=== PATIENT | female | born 1975 | race Caucasian/White ===

== ENCOUNTER 2017-12-18 10:07 | Observation (INO) ==
--- NOTE | 2017-12-18 10:19 | Emergency Department Note ---
Disposition Clinical Impression: Suicidal ideation, Attempted suicide Disposition: Admitted As Inpatient Condition: Fair General Adult HPI - General Stated complaint: SI, OD Time Seen by Provider: 12/18/17 10:13 - Related Data Previous Rx's Medication Instructions Recorded Doxycycline Hyclate 100 mg PO BID #20 tablet. 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 - Social History Smoking Status: Current every day smoker Smokeless Tobacco Status: No Alcohol use: Reports: none Drug use: Reports: none Course Vital Signs Temperature 98.1 F 12/18/17 10:11 Pulse Rate 112 12/18/17 10:11 Respiratory Rate 18 12/18/17 10:11 Blood Pressure 166/105 12/18/17 10:11 O2 Sat by Pulse Oximetry 98 12/18/17 10:11 Temperature 98.1 F 12/18/17 10:11 Pulse Rate 112 12/18/17 10:11 Respiratory Rate 18 12/18/17 10:11 Blood Pressure 166/105 12/18/17 10:11 O2 Sat by Pulse Oximetry 98 12/18/17 10:11 Oxygen Delivery Oxygen Delivery Room Air Medical Decision Making - Lab Data Result diagrams: 12/18/17 10:33 12/18/17 10:33 Lab Results 12/18/17 12/18/17 12/18/17 Range/Units 10:26 10:33 10:33 WBC 10.6 (4.3-11.1) K/mcL RBC 5.21 H (3.82-4.97) M/mcL Hgb 15.3 (11.5-15.4) g/dL Hct 44.7 (35.3-44.9) % MCV 85.8 (83.0-100.0) fL MCH 29.4 (28.0-33.3) pg MCHC 34.2 (31.6-35.5) g/dL RDW 13.1 (11.5-14.5) % Plt Count 301 (140-400) K/mcL MPV 8.7 L (9.4-12.4) fL Immature Gran % 0.2 (0-4) % Seg Neutrophils % 57.0 % Lymphocytes % 28.8 % Monocytes % 11.7 % Eosinophils % 1.7 % Basophils % 0.6 % Neutrophils # 6.0 (1.6-8.9) K/mcL Lymphocytes # 3.1 (0.6-4.6) K/mcL Monocytes # 1.2 (0.0-1.3) K/mcL Eosinophils # 0.2 (0.0-0.6) K/mcL Basophils # 0.1 (0.0-0.2) K/mcL Sodium 137 (136-145) mEq/L Potassium 3.9 (3.5-5.1) mEq/L Chloride 106 (98-107) mEq/L Carbon Dioxide 22 L (23-29) mEq/L BUN 11 (6-20) mg/dL Creatinine 0.65 (0.60-1.20) mg/dL Est GFR ( Amer) > 60 (> 60) Est GFR (Non-Af Amer) > 60 (> 60) BUN/Creatinine Ratio 17 (6-26) Glucose 105 (70-105) mg/dL Calculated Osmolality 284 (280-300) Calcium 9.0 (8.6-10.3) mg/dL Phosphorus 2.1 L (2.7-4.5) mg/dL Magnesium 2.0 (1.6-2.6) mg/dL Urine Color (Yellow) Urine Clarity (Clear) Urine pH (5.0-8.0) pH Units Ur Specific [place] (1.010-1.025) Urine Protein (Neg-Trace) mg/dL Urine Glucose (UA) (Normal) mg/dL Urine Ketones (Negative) mg/dL Urine Blood (Negative) Urine Nitrite (Negative) Urine Bilirubin (Negative) Urine Urobilinogen (Normal) mg/dL Ur Leukocyte Esterase (Negative) Salicylates < 2.5 L (15.0-30.0) mg/dL Urine Opiates Screen Negative (Dyhuhm=018) ng/mL Acetaminophen < 10 L (10-20) mcg/mL Ur Barbiturates Screen Negative (Hcxnhk=981) ng/mL Ur Phencyclidine Scrn Negative (Cutoff=25) ng/mL Ur Amphetamines Screen Negative (Vnbpkj=1715) ng/mL U Benzodiazepines Scrn Negative (Lwiqnb=565) ng/mL Urine Cocaine Screen Negative (Cutoff= 300) ng/mL U Marijuana (THC) Screen Negative (Cutoff = 50) ng/mL Ur Drug Screen Interp See Below Ethyl Alcohol < 10 (Less than 10) mg/dL 12/18/17 Range/Units 10:34 WBC (4.3-11.1) K/mcL RBC (3.82-4.97) M/mcL Hgb (11.5-15.4) g/dL Hct (35.3-44.9) % MCV (83.0-100.0) fL MCH (28.0-33.3) pg MCHC (31.6-35.5) g/dL RDW (11.5-14.5) % Plt Count (140-400) K/mcL MPV (9.4-12.4) fL Immature Gran % (0-4) % Seg Neutrophils % % Lymphocytes % % Monocytes % % Eosinophils % % Basophils % % Neutrophils # (1.6-8.9) K/mcL Lymphocytes # (0.6-4.6) K/mcL Monocytes # (0.0-1.3) K/mcL Eosinophils # (0.0-0.6) K/mcL Basophils # (0.0-0.2) K/mcL Sodium (136-145) mEq/L Potassium (3.5-5.1) mEq/L Chloride (98-107) mEq/L Carbon Dioxide (23-29) mEq/L BUN (6-20) mg/dL Creatinine (0.60-1.20) mg/dL Est GFR ( Amer) (> 60) Est GFR (Non-Af Amer) (> 60) BUN/Creatinine Ratio (6-26) Glucose (70-105) mg/dL Calculated Osmolality (280-300) Calcium (8.6-10.3) mg/dL Phosphorus (2.7-4.5) mg/dL Magnesium (1.6-2.6) mg/dL Urine Color Yellow (Yellow) Urine Clarity Clear (Clear) Urine pH 6.0 (5.0-8.0) pH Units Ur Specific [place] 1.009 L (1.010-1.025) Urine Protein Negative (Neg-Trace) mg/dL Urine Glucose (UA) Normal (Normal) mg/dL Urine Ketones Negative (Negative) mg/dL Urine Blood Negative (Negative) Urine Nitrite Negative (Negative) Urine Bilirubin Negative (Negative) Urine Urobilinogen Normal (Normal) mg/dL Ur Leukocyte Esterase Negative (Negative) Salicylates (15.0-30.0) mg/dL Urine Opiates Screen (Lavjvk=619) ng/mL Acetaminophen (10-20) mcg/mL Ur Barbiturates Screen (Dhamjl=288) ng/mL Ur Phencyclidine Scrn (Cutoff=25) ng/mL Ur Amphetamines Screen (Oihmfq=2808) ng/mL U Benzodiazepines Scrn (Vfxxeg=742) ng/mL Urine Cocaine Screen (Cutoff= 300) ng/mL U Marijuana (THC) Screen (Cutoff = 50) ng/mL Ur Drug Screen Interp Ethyl Alcohol (Less than 10) mg/dL Attestation Statement - Attestation Attestation: I examined this patient and my medical decision-making was reviewed with the Resident Physician. I agree with the documented findings, disposition and treatment plan as described except to the extent set forth below. Patient to ED with intentional overdose on Wellbutrin. Wanted to kill herself. Took 15 pills 20 minutes ago. On exam she is awake alert and appropriate tearful but in no distress. Plan. Discussed with poison control who does not want charcoal. Medical clearance and evaluation by 1A. Patient is medically cleared. 1A evaluation pending. 1A feels patient appropriate for admission. Physical now states they were mistaken and the patient is admitted for a 12 hour observation period. We will admit to medicine.
--- NOTE | 2017-12-18 10:19 | Emergency Department Note ---
Addendum entered and electronically signed by Liz Schilling DO 12/18/17 15 :32: After patient was accepted by psychiatric services poison control called us back and stated that the patient would actually need to be monitored for 12-24 hours. Due to this change the admitted to the hospitalist team for further medical clearance until patient can be transferred to psychiatric services. I spoke with the hospitalist workers' compensation claims supervisor Dr. Leos who agrees to accept the patient at this time. Original Note: Disposition Clinical Impression: Suicidal ideation, Attempted suicide Disposition: Admitted As Inpatient Condition: Fair Referrals: NONE,PCP [Primary Care Provider] - General Adult HPI - General Stated complaint: SI, OD Time Seen by Provider: 12/18/17 10:13 Source: patient, EMS Mode of arrival: EMS Nursing Notes Reviewed: Yes Vital Signs Reviewed: Yes - History of Present Illness HPI Narrative: 42-year-old female presenting for intentional overdose. According to EMS patient took 15 75 mg Wellbutrin approximately 20 minutes prior to arrival. Patient told her boyfriend who then called EMS. At this time patient complains of dizziness but denies any other symptoms including chest pain, shortness of breath or abdominal pain. No active vomiting in the room. Patient denies any other intentional ingestion prior to arrival. Denies any drug or alcohol use. Patient has history of depression but has never had any suicide attempts previously. - Related Data Previous Rx's Medication Instructions Recorded Doxycycline Hyclate 100 mg PO BID #20 tablet. 11/10/17 Allergies Allergy/AdvReac Type Severity Reaction Status Date / Time No Known Allergies Allergy Verified 11/10/17 16:00 All systems ED: reviewed and negative except as stated. Constitutional: Denies: fever, chills, weakness Eyes: Reports: as per HPI ENT ED: Reports: as per HPI Cardiovascular: Denies: chest pain, palpitations, dyspnea on exertion Respiratory: Denies: cough, dyspnea, wheezes Gastrointestinal: Denies: abdominal pain, nausea, vomiting Genitourinary: Reports: as per HPI Musculoskeletal: Reports: as per HPI Integumentary: Reports: as per HPI Neurological: Reports: other Psychiatric: Reports: depression, suicidal thoughts Endocrine: Reports: as per HPI Hematological/Lymphatic: Reports: as per HPI Allergic/Immunologic: Reports: as per HPI Past Medical History - Past Medical History Attestation: Yes The following information was validated with the patient. 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 Absent: scleral icterus, conjunctival injection - ENT ENT exam: normal exam, mucous membranes moist - Neck Neck exam: Present: normal inspection, full ROM. Absent: tenderness, meningismus - Chest Chest inspection: Present: normal inspection, symmetric chest wall rise. Absent : tenderness, rash - Respiratory Respiratory exam: Present: normal lung sounds bilaterally. Absent: respiratory distress, wheezes - Cardiovascular Cardiovascular exam: Present: normal rhythm, tachycardia, normal heart sounds - Abdominal Exam Abdominal exam: Present: soft, Non-Tender. Absent: distention, guarding, rebound - Extremities Exam Extremities exam: Present: normal inspection, full ROM - Neurological Exam Neurological exam: Present: alert - Psychiatric Psychiatric exam: Present: flat affect, suicidal ideation - Skin Skin exam: Present: warm, intact Course Course Narrative: 42-year-old female presenting for an intentional overdose. Patient took 15 75 mg Wellbutrin 20 minutes prior to arrival. I spoke with poison control who stated we should get an EKG now and repeat EKG in 2 hours to observe QTC prolongation. Also suggested adding a magnesium and phosphorus level to our medical clearance workup. Patient's only complaint at this time is dizziness. She is tachycardic but otherwise vital signs stable. Disposition most likely admission but pending medical clearance and one a evaluation. She will be pink slipped at this time. - Reevaluation(s) Reevaluation #1: Patient's repeat EKG shows no QTC prolongation. At this time medically clear. We have consult one a to evaluate the patient. They feel she needs to be admitted for inpatient psychiatric services. At this time will admit the patient to one a. Patient is alert and medically stable the room. Stable vital signs. Vital Signs Temperature 98.1 F 12/18/17 10:11 Pulse Rate 112 12/18/17 10:11 Respiratory Rate 18 12/18/17 10:11 Blood Pressure 166/105 12/18/17 10:11 O2 Sat by Pulse Oximetry 98 12/18/17 10:11 Temperature 98.1 F 12/18/17 10:11 Pulse Rate 112 12/18/17 10:11 Respiratory Rate 18 12/18/17 10:11 Blood Pressure 166/105 12/18/17 10:11 O2 Sat by Pulse Oximetry 98 12/18/17 10:11 Oxygen Delivery Oxygen Delivery Room Air Medical Decision Making - Lab Data Result diagrams: 12/18/17 10:33 12/18/17 10:33 Lab Results 12/18/17 12/18/17 12/18/17 Range/Units 10:26 10:33 10:33 WBC 10.6 (4.3-11.1) K/mcL RBC 5.21 H (3.82-4.97) M/mcL Hgb 15.3 (11.5-15.4) g/dL Hct 44.7 (35.3-44.9) % MCV 85.8 (83.0-100.0) fL MCH 29.4 (28.0-33.3) pg MCHC 34.2 (31.6-35.5) g/dL RDW 13.1 (11.5-14.5) % Plt Count 301 (140-400) K/mcL MPV 8.7 L (9.4-12.4) fL Immature Gran % 0.2 (0-4) % Seg Neutrophils % 57.0 % Lymphocytes % 28.8 % Monocytes % 11.7 % Eosinophils % 1.7 % Basophils % 0.6 % Neutrophils # 6.0 (1.6-8.9) K/mcL Lymphocytes # 3.1 (0.6-4.6) K/mcL Monocytes # 1.2 (0.0-1.3) K/mcL Eosinophils # 0.2 (0.0-0.6) K/mcL Basophils # 0.1 (0.0-0.2) K/mcL Sodium 137 (136-145) mEq/L Potassium 3.9 (3.5-5.1) mEq/L Chloride 106 (98-107) mEq/L Carbon Dioxide 22 L (23-29) mEq/L BUN 11 (6-20) mg/dL Creatinine 0.65 (0.60-1.20) mg/dL Est GFR ( Amer) > 60 (> 60) Est GFR (Non-Af Amer) > 60 (> 60) BUN/Creatinine Ratio 17 (6-26) Glucose 105 (70-105) mg/dL Calculated Osmolality 284 (280-300) Calcium 9.0 (8.6-10.3) mg/dL Phosphorus 2.1 L (2.7-4.5) mg/dL Magnesium 2.0 (1.6-2.6) mg/dL Urine Color (Yellow) Urine Clarity (Clear) Urine pH (5.0-8.0) pH Units Ur Specific [place] (1.010-1.025) Urine Protein (Neg-Trace) mg/dL Urine Glucose (UA) (Normal) mg/dL Urine Ketones (Negative) mg/dL Urine Blood (Negative) Urine Nitrite (Negative) Urine Bilirubin (Negative) Urine Urobilinogen (Normal) mg/dL Ur Leukocyte Esterase (Negative) Salicylates < 2.5 L (15.0-30.0) mg/dL Urine Opiates Screen Negative (Xbqgsr=813) ng/mL Acetaminophen < 10 L (10-20) mcg/mL Ur Barbiturates Screen Negative (Uuiqaw=714) ng/mL Ur Phencyclidine Scrn Negative (Cutoff=25) ng/mL Ur Amphetamines Screen Negative (Yayhnh=2573) ng/mL U Benzodiazepines Scrn Negative (Ewkyhy=940) ng/mL Urine Cocaine Screen Negative (Cutoff= 300) ng/mL U Marijuana (THC) Screen Negative (Cutoff = 50) ng/mL Ur Drug Screen Interp See Below Ethyl Alcohol < 10 (Less than 10) mg/dL 12/18/17 Range/Units 10:34 WBC (4.3-11.1) K/mcL RBC (3.82-4.97) M/mcL Hgb (11.5-15.4) g/dL Hct (35.3-44.9) % MCV (83.0-100.0) fL MCH (28.0-33.3) pg MCHC (31.6-35.5) g/dL RDW (11.5-14.5) % Plt Count (140-400) K/mcL MPV (9.4-12.4) fL Immature Gran % (0-4) % Seg Neutrophils % % Lymphocytes % % Monocytes % % Eosinophils % % Basophils % % Neutrophils # (1.6-8.9) K/mcL Lymphocytes # (0.6-4.6) K/mcL Monocytes # (0.0-1.3) K/mcL Eosinophils # (0.0-0.6) K/mcL Basophils # (0.0-0.2) K/mcL Sodium (136-145) mEq/L Potassium (3.5-5.1) mEq/L Chloride (98-107) mEq/L Carbon Dioxide (23-29) mEq/L BUN (6-20) mg/dL Creatinine (0.60-1.20) mg/dL Est GFR ( Amer) (> 60) Est GFR (Non-Af Amer) (> 60) BUN/Creatinine Ratio (6-26) Glucose (70-105) mg/dL Calculated Osmolality (280-300) Calcium (8.6-10.3) mg/dL Phosphorus (2.7-4.5) mg/dL Magnesium (1.6-2.6) mg/dL Urine Color Yellow (Yellow) Urine Clarity Clear (Clear) Urine pH 6.0 (5.0-8.0) pH Units Ur Specific [place] 1.009 L (1.010-1.025) Urine Protein Negative (Neg-Trace) mg/dL Urine Glucose (UA) Normal (Normal) mg/dL Urine Ketones Negative (Negative) mg/dL Urine Blood Negative (Negative) Urine Nitrite Negative (Negative) Urine Bilirubin Negative (Negative) Urine Urobilinogen Normal (Normal) mg/dL Ur Leukocyte Esterase Negative (Negative) Salicylates (15.0-30.0) mg/dL Urine Opiates Screen (Eftfzu=435) ng/mL Acetaminophen (10-20) mcg/mL Ur Barbiturates Screen (Awfmiy=783) ng/mL Ur Phencyclidine Scrn (Cutoff=25) ng/mL Ur Amphetamines Screen (Vtwcjy=2537) ng/mL U Benzodiazepines Scrn (Aaufai=488) ng/mL Urine Cocaine Screen (Cutoff= 300) ng/mL U Marijuana (THC) Screen (Cutoff = 50) ng/mL Ur Drug Screen Interp Ethyl Alcohol (Less than 10) mg/dL - EKG Data EKG #1 EKG attestation: Yes I reviewed and interpreted this EKG. EKG results narrative: Sinus tachycardia. 114 bpm. MT interval 153, QRS 97, QTC 460. No sign of acute ST segment elevation or ischemia. Compared to previous EKG completed on 09/21/2017 no significant changes noted EKG #2 EKG attestation: Yes I reviewed and interpreted this EKG. EKG results narrative: Sinus rhythm. 80 beats for minute. MT interval 165, QRS 94, QTC 426. No sign of acute ST segment elevation or ischemia.
[2017-12-18 10:38] LABS: Bilirubin,Urine Negative (Negative); Blood,Urine Negative (Negative); Clarity,Urine Clear (Clear); Color,Urine Yellow (Yellow); Glucose,Urine (UA) Normal (Normal); Ketones,Urine Negative (Negative); Leukocyte Esterase,Urine Negative (Negative); Nitrite,Urine Negative (Negative); Protein,Urine Negative (Neg-Trace); Specific Gravity,Urine 1.009 (1.010-1.025); Urobilinogen,Urine Normal (Normal)
[2017-12-18 10:47] LABS: Amphetamine Screen,Urine Negative ng/mL (Cutoff=1000); Barbiturate Screen,Urine Negative ng/mL (Cutoff=200); Benzodiazepines Screen,Urine Negative ng/mL (Cutoff=200); Cannabinoid Screen,Urine Negative ng/mL (Cutoff = 50); Cocaine Screen,Urine Negative ng/mL (Cutoff= 300); Opiate Screen,Urine Negative ng/mL (Cutoff=300); Phencyclidine Screen,Urine Negative ng/mL (Cutoff=25)
[2017-12-18 10:48] LABS: Basophils # 0.1 K/mcL (0.0-0.2); Basophils % 0.6 %; Eosinophils # 0.2 K/mcL (0.0-0.6); Eosinophils % 1.7 %; Hematocrit 44.7 % (35.3-44.9); Hemoglobin 15.3 g/dL (11.5-15.4); Immature Granulocytes % 0.2 % (0-4); Lymphocytes # 3.1 K/mcL (0.6-4.6); Lymphocytes % 28.8 %; Mean Corpuscular HGB Conc 34.2 g/dL (31.6-35.5); Mean Corpuscular Hemoglobin 29.4 pg (28.0-33.3); Mean Corpuscular Volume 85.8 fL (83.0-100.0); Mean Platelet Volume 8.7 fL (9.4-12.4); Monocytes # 1.2 K/mcL (0.0-1.3); Monocytes % 11.7 %; Platelet Count 301 K/mcL (140-400); Red Blood Count 5.21 M/mcL (3.82-4.97); Red Cell Distribution Width 13.1 % (11.5-14.5)
[2017-12-18 11:28] LABS: Acetaminophen < 10 mcg/mL (10-20); BUN/Creatinine Ratio 17 (6-26); Blood Urea Nitrogen 11 mg/dL (6-20); Carbon Dioxide 22 mEq/L (23-29); Chloride 106 mEq/L (98-107); Ethanol < 10 mg/dL (Less than 10); Glucose 105 mg/dL (70-105); Osmolality,Calculated 284 (280-300); Potassium 3.9 mEq/L (3.5-5.1); Salicylate < 2.5 mg/dL (15.0-30.0); Sodium 137 mEq/L (136-145); eGFR For Non-African Americans > 60 (> 60)
[2017-12-18 13:02] LABS: Phosphorous 2.1 mg/dL (2.7-4.5)
[2017-12-18] MEDS ORDERED: Ondansetron 4 MG/2 ML VIAL ONE (14:42)
[2017-12-18] MEDS ORDERED: Ondansetron 4 MG/2 ML VIAL IVP ONE (14:58)
[2017-12-18] MEDS ORDERED: Acetaminophen 325 MG TABLET PO PRN (15:41)
[2017-12-18] MEDS ORDERED: Naloxone 0.4 MG/ML INJ IVP PRN (15:41)
[2017-12-18] MEDS ORDERED: *HR* HYDROcodone/Acet 5/325 mg TABLET PO PRN (15:41)
[2017-12-18] MEDS ORDERED: 0.9 % Sodium Chloride 1,000 ML IVC SCH (15:45)
--- NOTE | 2017-12-18 16:31 | Internal Med History&Physical ---
Date of Encounter: 12/18/17 Time of Encounter: 16:31 Internal Medicine - H&P: HPI Chief complaint: Suicide attempt Admitted From: Home Plans for Post Hospital Care: Home History of present illness: Ms. Strange is a 42 year old female with PMH of depression who presented to the ER after ingesting 15 tabls of 75mg Welbutrin belonging to her partner in an attempt to hurt herself She reports being depressed for several years and today decided to kill herself. She denies any medical history, but states to me she has "PS" and states I cannot pronounce it. Her only home med is tumeric She denies illicit drug use Review of systems is negative Work up in ER showed hemoconcentration, Initial EKG with QTc of 460, repeat QTc 426. No TX/St or T wave changes She was presented to poison control, who recommended monitoring for 12 hrs She is currently stable Past Med Surg Social Fam HX - Past Medical History Medical history: no medical history Psychiatric history: depression - Past Surgical History Surgical History: non-contributory - Social History Smoking Status: Current every day smoker Smokeless Tobacco Status: No Alcohol use: none Drug use: none Internal Medicine - H&P: Meds Doxycycline Hyclate 100 mg PO BID #20 tablet. 11/10/17 [Rx] 3 Allergy/AdvReac Type Severity Reaction Status Date / Time No Known Allergies Allergy Verified 11/10/17 16:00 All Systems PM: A 10-system review of systems was performed and is negative for pertinent findings except as documented above in the HPI. - Constitutional Constitutional: no chills, no fever(s), no night sweats - EENT Eyes: no change in vision, no discharge, no pain, no photophobia Ears: no ear discharge, no ear pain, no tinnitus Nose, mouth and throat: no dysphagia, no nasal discharge, no neck pain, no sore throat - Cardiovascular Cardiovascular ROS IM: no chest pain, no diaphoresis, no dyspnea, no lightheadedness, no palpitations, no syncope - Respiratory Respiratory: no cough, no dyspnea, no wheezing, no excessive phlegm production - Gastrointestinal Gastrointestinal: no abdominal pain, no diarrhea, no hematemesis, no hematochezia, no melena, no nausea, no vomiting - Genitourinary Genitourinary: no change in urinary stream, no dysuria, no flank pain, no hematuria - Musculoskeletal Musculoskeletal ROS IM: no numbness, no tingling - Integumentary Integumentary IM: no rash, no unusual bruising - Neurological Neurological ROS: no confusion, no convulsions, no focal weakness, no numbness, no tingling, no tremor(s) - Psychiatric Psychiatric: depression, mood swings, suicidal ideation - Hematologic/Lymphatic Hematologic/Lymphatic: no easy bruising - Constitutional Vitals: Temp Pulse Resp BP Pulse Ox 98.1 F 112 18 166/105 98 12/18/17 10:11 12/18/17 10:11 12/18/17 10:11 12/18/17 10:11 12/18/17 10:11 General appearance: Present: A&O X 3, morbidly obese, pleasant Exam: See detailed examination below - Head Head exam: Present: atraumatic, normocephalic - Eye Eye exam: Present: PERRL, conjuntiva pink, sclera anicteric Pupils: Present: PERRL - Neck Neck exam general surgery: Present: supple, trachea midline. Absent: lymphadenopathy - Respiratory Respiratory exam: Present: CTAB. Absent: accessory muscle use, rales, rhonchi, wheezes - Cardiovascular Cardiovascular exam: Present: RRR, +S1, +S2. Absent: diastolic murmur, gallop, rubs, systolic murmur - GI/Abdominal GI/Abdominal exam: Present: normal bowel sounds, soft, no peritoneal signs. Absent: distended, tenderness - Extremities Exam Extremities exam: Present: warm, radial pulses palpable and symmetrical. Absent : calf tenderness, cyanotic, pedal edema - Neurological Exam Neurological exam: Present: CN II-XII intact, oriented X3, no focal deficits. Absent: pronater drift, facial droop, speech deficit - Skin Skin exam: Present: dry, intact Internal Med - H&P Results - Labs CBC & Chem 7: 12/18/17 10:33 12/18/17 10:33 - Assessment and plan (1) Attempted suicide Current Visit: Yes Status: Acute Assessment and plan: Patient ingested 15 tabs of welbutrin Initial EKG with QTC of 460, Mag was 2.0 Keep on tele Sitter at the bedside Repeat EKG a.m Rpt Chem with Mag a.m Psych eval (2) Depression Current Visit: Yes Status: Chronic Assessment and plan: psych eval Continue sitter Qualifiers: Depression Type: major depressive disorder Major depression recurrence: recurrent Active/Remission status: currently active Major depression episode severity: severe Psychotic features: without psychotic features Qualified Code(s): F33.2 - Major depressive disorder, recurrent severe without psychotic features (3) Obesity Current Visit: Yes Status: Chronic Assessment and plan: lifestyle modification Qualifiers: Obesity type: unspecified obesity type Obesity classification: adult class 2 (BMI 35 - 39.9) Serious obesity comorbidity presence: without serious comorbidity Body mass index: BMI 39.0-39.9 Qualified Code(s): E66.9 - Obesity, unspecified; Z68.39 - Body mass index (BMI) 39.0-39.9, adult - Time Spent With Patient Total time spent is greater than 50% in coordination of care (as documented) at patient's floor/unit and/or counseling patient:
[2017-12-19 05:27] LABS: BUN/Creatinine Ratio 13 (6-26); Blood Urea Nitrogen 10 mg/dL (6-20); Calcium 8.8 mg/dL (8.6-10.3); Carbon Dioxide 25 mEq/L (23-29); Chloride 108 mEq/L (98-107); Glucose 97 mg/dL (70-105); Magnesium 2.1 mg/dL (1.6-2.6); Osmolality,Calculated 287 (280-300); Potassium 3.8 mEq/L (3.5-5.1); Sodium 139 mEq/L (136-145); eGFR For Non-African Americans > 60 (> 60)
[2017-12-19] MEDS ORDERED: Ketorolac 30 MG/ML VIAL IVP ONE (11:40)
--- NOTE | 2017-12-19 11:44 | Discharge Summary ---
- NOTES TO OUTPATIENT PROVIDER Notes to Outpatient Provider: Pt placed in observation after ingesting Wellbutrin in a suicide attempt. Orders not resulted at time of discharge: Pending orders 12/19/17 11:14 HCG,Routine Test Routine Date of Encounter: 12/19/17 Time of Encounter: 11:41 - Discharge Diagnosis (1) Attempted suicide Priority: Primary Status: Acute Assessment and Plan: QTc is 406 this AM. Has been monitored for over 24 hours (time in ED was 10AM yesterday). She is medically clear for discharge. (2) Suicidal ideation Priority: Secondary Status: Acute (3) Depression Priority: Secondary Status: Chronic Qualifiers: Depression Type: major depressive disorder Major depression recurrence: recurrent Active/Remission status: currently active Major depression episode severity: severe Psychotic features: without psychotic features Qualified Code(s): F33.2 - Major depressive disorder, recurrent severe without psychotic features (4) Obesity Priority: Secondary Status: Chronic Qualifiers: Obesity type: unspecified obesity type Obesity classification: adult class 2 (BMI 35 - 39.9) Serious obesity comorbidity presence: without serious comorbidity Body mass index: BMI 39.0-39.9 Qualified Code(s): E66.9 - Obesity, unspecified; Z68.39 - Body mass index (BMI) 39.0-39.9, adult (5) Tobacco abuse Priority: Secondary Status: Chronic Hospital course: Ms. Strange is a 42 year old female with hx of depression presented to ED after ingesting 15 tablets of Wellbutrin 75mg in suicide attempt. Ms Strange was placed in observation following intentional OD of Wellbutrin in suicide attempt. She was monitored on telemetry and her EKG QTc has improved. She initially had some tremors but this has resolved. No seizure activity. Currently she is afebrile with stable vitals. She is medically cleared for discharge. Discharge discussed with: patient, family Time spent discussing smoking cessation with patient: 3 to 10 minutes - Time Spent with Patient Total time spent providing and/or coordinating discharge services: 38min - Discharge Medications Home Medications: No Known Home Drugs 12/19/17 [History] Allergies/Adverse Reactions: 3 Allergy/AdvReac Type Severity Reaction Status Date / Time No Known Allergies Allergy Verified 11/10/17 16:00 Date of admission: 12/18/17 16:18 Primary care physician: PCP NONE Consults: 12/18/17 17:01 Consult to Psychiatry [CONS] Routine Consulting Provider: [facility] [place] Reason consult: Sitter/1:1 Other Other reason and/or additional details: Suicidal attempt, intentional drug overdose Discharging clinician: Roge Tony Anticipated date of discharge: 12/19/17 - Constitutional Vitals: Temp Pulse Resp BP Pulse Ox 98.1 F 84 16 111/65 96 12/19/17 10:36 12/19/17 10:36 12/19/17 10:36 12/19/17 10:36 12/19/17 10:36 General appearance: Present: A&O X 3, pleasant, answers questions appropriately (Though very reserved.) Exam: See below - Head Head exam: Present: normocephalic - Eye Eye exam: Present: EOMI, conjuntiva pink - ENT ENT exam: Present: mucous membranes moist - Respiratory Respiratory exam: Present: CTAB. Absent: rales, rhonchi, wheezes - Cardiovascular Cardiovascular exam: Present: RRR. Absent: tachycardia - GI/Abdominal GI/Abdominal exam: Present: normal bowel sounds, soft. Absent: tenderness - Extremities Exam Extremities exam: Present: warm. Absent: tenderness - Neurological Exam Neurological exam: Present: alert, oriented X3, no focal deficits - Psychiatric Psychiatric exam: Present: depressed, flat affect - Skin Skin exam: Present: dry, warm - Patient Status Disposition: Transfer Psychiatric Hosp Condition: Fair Functional capacity at discharge: independent ambulation Overall status at discharge: patient is progressing back to baseline - Discharge Instructions Follow Up With: NONE,PCP [Primary Care Provider] - Forms: ED Satisfaction Letter - Diet and Activity Activity: increase activity as tolerated Diet: advance to your usual diet
[2017-12-19] MEDS ORDERED: Nicotine 21 MG PATCH.TD24 TD SCH (11:45)
[2017-12-19 14:54] VITALS: BP 158/81
--- NOTE | 2017-12-19 17:55 | Consult Note ---
Date of Encounter: 12/19/17 Time of Encounter: 15:45 Assessment & Recommendation (1) Major depressive disorder, recurrent severe without psychotic features Status: Acute (2) Attempted suicide Status: Acute (3) Suicidal ideation Status: Acute History of Present Illness Patient: new to practice Requesting Physician: Roge Tony DO Reason for consult: depression, SI History of present illness: Ms. Strange is a 42 year old female The patient is a 42-year-old white female. She was seen and accompanied with her boyfriend Reagan. Chief complaint I was done, yesterday was my breaking point. History of present illness. The patient's ex- made a comment to her. This was very upsetting to her her ex- takes her daughter and most recently took his her daughter to [place]. The patient became upset and by report took an overdose of her boyfriends Wellbutrin. The patient does not recall all of it she did not have a seizure she woke up in the hospital. Patient has been treated in the past for depression. This included the medicine Celexa but she has not been on it for years she has low self-esteem low interest guilt low energy poor concentration decreased appetite and decreased activity variable sleep she did not have ongoing suicidal ideation but had been avoiding going out of the apartment or the house. Past psychiatric history is negative for psychiatric hospitalization suicidal ideation or suicide attempt she has no history of alcohol or drug abuse. Past medical history is significant for . Her illnesses are none but she was checked for borderline diabetes mellitus allergies NKDA. Meds none. Note she has no PCP but sees Dr. Gustafson for [employer] Family history. The patient's mother and grandmother had psychiatric history. A uncle had a drug problem but is otherwise negative for alcohol or substance abuse. Social history: The patient lives in [facility] with Reagan and Reagan's grandmother. She has no incoming money. She last worked 2 months ago. The patient agreed to voluntary admission to 1 day CC: Roge Tony DO Past Med Surg Social Fam HX - Past Medical History Medical history: no medical history - Past Psychiatric History Psychiatric history: Reports: depression Family psychiatric history: Yes Family History of Suicide: None - Past Surgical History Surgical History: non-contributory, - Social History Smoking Status: Current every day smoker Smokeless Tobacco Status: No Alcohol use: none Drug use: none Occupational status: previously employed Current living situation: Home, With Family Activity Level: Independent ambulation Recent Out of Country Travel Within the Last 8 Weeks: No Exposure or Possible Exposure to Illness During Travel: No - Family History Mother Hx Family Psychosocial Disorders: Yes (anxiety) Medications & Allergies No Known Home Drugs 12/19/17 [History] 3 Allergy/AdvReac Type Severity Reaction Status Date / Time No Known Allergies Allergy Verified 11/10/17 16:00 Review of Systems Psychiatric: Reports: depression, anxiety, anhedonia Psychiatry Exam - Constitutional Vitals: Temp Pulse Resp BP Pulse Ox 98.6 F 84 12 158/81 96 12/19/17 14:52 12/19/17 14:52 12/19/17 14:52 12/19/17 14:52 12/19/17 14:52 General appearance: age & developmentally appropriate, well-groomed, well- nourished - Musculoskeletal Gait: normal Station: relaxed Strength & Tone: normal for patient - Psychiatric Patient Orientation: Yes Person, Yes Time, Yes Place Level of alertness: Alert Behavior: calm, cooperative Psychomotor activity: Slowed Eye Contact: Minimal Contact Mood Description: Depressed Affect description: congruent with mood, full range Speech Volume: Normal, Soft/Quiet Speech pattern: normal rate, normal rhythm, normal tone, fluent, spontaneous, slowed Language & Vocabulary: consistent with education Thought Process: Linear, Goal Oriented Thought Content: Yes Suicidal ideation, No Homicidal ideation, No Overt delusions Perceptual Disturbances: No Auditory hallucinations, No Visual hallucinations Attention Span Ability: Capable of Focused Attention Memory Description: Grossly Intact Patient Reliability: Reliable Historian Fund of knowledge: Yes abstraction ability, Yes aware of current events Intelligence Estimate: Average Judgment: Limited Insight: Minimal Results - Labs Labs: Laboratory Last Values WBC 10.6 K/mcL (4.3-11.1) 12/18/17 10:33 RBC 5.21 M/mcL (3.82-4.97) H 12/18/17 10:33 Hgb 15.3 g/dL (11.5-15.4) 12/18/17 10:33 Hct 44.7 % (35.3-44.9) 12/18/17 10:33 MCV 85.8 fL (83.0-100.0) 12/18/17 10:33 MCH 29.4 pg (28.0-33.3) 12/18/17 10:33 MCHC 34.2 g/dL (31.6-35.5) 12/18/17 10:33 RDW 13.1 % (11.5-14.5) 12/18/17 10:33 Plt Count 301 K/mcL (140-400) 12/18/17 10:33 MPV 8.7 fL (9.4-12.4) L 12/18/17 10:33 Immature Gran % 0.2 % (0-4) 12/18/17 10:33 Seg Neutrophils % 57.0 % 12/18/17 10:33 Lymphocytes % 28.8 % 12/18/17 10:33 Monocytes % 11.7 % 12/18/17 10:33 Eosinophils % 1.7 % 12/18/17 10:33 Basophils % 0.6 % 12/18/17 10:33 Neutrophils # 6.0 K/mcL (1.6-8.9) 12/18/17 10:33 Lymphocytes # 3.1 K/mcL (0.6-4.6) 12/18/17 10:33 Monocytes # 1.2 K/mcL (0.0-1.3) 12/18/17 10:33 Eosinophils # 0.2 K/mcL (0.0-0.6) 12/18/17 10:33 Basophils # 0.1 K/mcL (0.0-0.2) 12/18/17 10:33 Sodium 139 mEq/L (136-145) 12/19/17 04:14 Potassium 3.8 mEq/L (3.5-5.1) 12/19/17 04:14 Chloride 108 mEq/L (98-107) H 12/19/17 04:14 Carbon Dioxide 25 mEq/L (23-29) 12/19/17 04:14 BUN 10 mg/dL (6-20) 12/19/17 04:14 Creatinine 0.76 mg/dL (0.60-1.20) 12/19/17 04:14 Est GFR ( Amer) > 60 (> 60) 12/19/17 04:14 Est GFR (Non-Af Amer) > 60 (> 60) 12/19/17 04:14 BUN/Creatinine Ratio 13 (6-26) 12/19/17 04:14 Glucose 97 mg/dL (70-105) 12/19/17 04:14 Calculated Osmolality 287 (280-300) 12/19/17 04:14 Calcium 8.8 mg/dL (8.6-10.3) 12/19/17 04:14 Phosphorus 2.1 mg/dL (2.7-4.5) L 12/18/17 10:33 Magnesium 2.1 mg/dL (1.6-2.6) 12/19/17 04:14 Serum , Qual Negative (Negative) 12/19/17 11:14 Urine Color Yellow (Yellow) 12/18/17 10:34 Urine Clarity Clear (Clear) 12/18/17 10:34 Urine pH 6.0 pH Units (5.0-8.0) 12/18/17 10:34 Ur Specific [place] 1.009 (1.010-1.025) L 12/18/17 10:34 Urine Protein Negative mg/dL (Neg-Trace) 12/18/17 10:34 Urine Glucose (UA) Normal mg/dL (Normal) 12/18/17 10:34 Urine Ketones Negative mg/dL (Negative) 12/18/17 10:34 Urine Blood Negative (Negative) 12/18/17 10:34 Urine Nitrite Negative (Negative) 12/18/17 10:34 Urine Bilirubin Negative (Negative) 12/18/17 10:34 Urine Urobilinogen Normal mg/dL (Normal) 12/18/17 10:34 Ur Leukocyte Esterase Negative (Negative) 12/18/17 10:34 Salicylates < 2.5 mg/dL (15.0-30.0) L 12/18/17 10:33 Urine Opiates Screen Negative ng/mL (Ymgvnm=941) 12/18/17 10:26 Acetaminophen < 10 mcg/mL (10-20) L 12/18/17 10:33 Ur Barbiturates Screen Negative ng/mL (Uryfqh=137) 12/18/17 10:26 Ur Phencyclidine Scrn Negative ng/mL (Cutoff=25) 12/18/17 10:26 Ur Amphetamines Screen Negative ng/mL (Jxgigc=8356) 12/18/17 10:26 U Benzodiazepines Scrn Negative ng/mL (Jolyvg=854) 12/18/17 10:26 Urine Cocaine Screen Negative ng/mL (Cutoff= 300) 12/18/17 10:26 U Marijuana (THC) Screen Negative ng/mL (Cutoff = 50) 12/18/17 10:26 Ur Drug Screen Interp See Below 12/18/17 10:26 Ethyl Alcohol < 10 mg/dL (Less than 10) 12/18/17 10:33 Consult Discharge Plan - Plan Referrals: NONE,PCP [Primary Care Provider] -
--- NOTE | 2017-12-20 10:42 | Electrocardiograph Report ---
[place] [id number] Test Date: 2017-12-19 Pat Name: Lizeth Strange Department: 113 Room: 3B33 Gender: Medical Technologist Hematology: : 1975 Requested By: Denzel Leos Order Number: [id number] Reading MD: Elijah Mariscal Measurements Intervals [place] Rate: 78 P: 53 WA: 181 QRS: -38 QRSD: 96 T: 65 QT: 373 QTc: 406 Interpretive Statements SINUS RHYTHM Left anterior fascicular block Abnormal R wave progression Electronically Signed On 12-20-2017 10:41:47 EDT by Elijah Mariscal
--- NOTE | 2017-12-22 17:38 | Electrocardiograph Report ---
[place] [id number] Test Date: 2017-12-18 Pat Name: Lizeth Strange Department: EXAM18 Room: 3B33 Gender: F Legal Librarian: : 1975 Requested By: Liz Schilling Order Number: [id number] Reading MD: Amelia Levy Measurements Intervals [place] Rate: 114 P: 68 DC: 163 QRS: -59 QRSD: 97 T: 59 QT: 334 QTc: 460 Interpretive Statements Sinus tachycardia Left anterior fascicular block Abnormal R-wave progression, late transition Electronically Signed On 12-22-2017 17:36:56 EDT by Amelia Levy
--- NOTE | 2017-12-22 17:40 | Electrocardiograph Report ---
[place] [address] Test Date: 2017-12-18 Pat Name: Lizeth Strange Department: [id number] Room: 3B33 Gender: F Filling Hauler Weaving: : 1975 Requested By: Roge Tony Order Number: [id number] Reading MD: Amelia Levy Measurements Intervals [place] Rate: 88 P: 40 MS: 165 QRS: -58 QRSD: 94 T: 56 QT: 352 QTc: 426 Interpretive Statements Sinus rhythm Left anterior fascicular block Abnormal R-wave progression, late transition Electronically Signed On 12-22-2017 17:38:18 EDT by Amelia Levy
== END 2017-12-19 17:07 ==
LOC: EMEROOARM 10:07 → 3BNU 10:07 → 1ANU 13:36 → SUATTDRO 16:18 → 3BNU 17:31
PROVIDERS: ADMIT Internal Medicine; ATTEND Internal Medicine

== ENCOUNTER 2017-12-19 17:17 | Inpatient (IN) ==
[2017-12-19] MEDS ORDERED: Acetaminophen 325 MG TABLET PO PRN (17:39)
[2017-12-19] MEDS ORDERED: Mag Hydrox/Al Hydrox/Simeth 30 ML UDC PO PRN (17:39)
[2017-12-19] MEDS ORDERED: hydrOXYzine pamoate 25 MG CAPSULE PO PRN (17:39)
[2017-12-19] MEDS ORDERED: *HR* LORazepam 2 MG/ML VIAL IM PRN (17:39)
[2017-12-19] MEDS ORDERED: MOM Conc 10 ML UD.LIQ PO PRN (17:39)
[2017-12-19] MEDS ORDERED: traZODone 50 MG TABLET PO PRN (17:39)
[2017-12-19] MEDS ORDERED: Haloperidol Lactate 5 MG/ML VIAL IM PRN (17:39)
[2017-12-19] MEDS ORDERED: *HR* LORazepam 1 MG TABLET PO PRN (17:39)
[2017-12-20] MEDS: Nicotine 21 MG PATCH.TD24 TD SCH (08:54)
--- NOTE | 2017-12-20 11:41 | Psychiatry History & Physical ---
Date of Encounter: 12/20/17 Time of Encounter: 11:30 History of Present Illness Patient Stated Chief Complaint: I took an overdose Medicare Admission Attestation: For traditional Medicare patients the provided hospital inpatient services are reasonable and necessary and in the case of services not specified as inpatient -only under 42 CFR 419.22 (n), that they are appropriately provided as inpatient services in accordance 42 CFR 412.3. For Critical Access Hospital the patient may reasonably be expected to be discharged or transferred to a hospital within 96 hours after admission to the Critical Access Hospital. Admitted From: Intrahospital Transfer Plans for Post Hospital Care: Home History of Present Illness: Ms. Strange is a 42 year old female The patient is a 42-year-old single white female. She was transferred from the inpatient hospital. The reader is referred to the consult for of fall history and additional information Chief complaint I took an overdose History of present illness. The patient had some features of depression she was not going out and doing much. She lived with her boyfriend and her boyfriend's grandmother. Her ex- made some comments to her and took her daughter. The patient became depressed she took part of her boyfriends Wellbutrin overdose attempt she did not have a seizure but was partially amnestic. Past psychiatric history patient is previously been treated with Celexa for the treatment of major depression. This episode was previous and she had no ongoing treatment she is coming to [place] for several months. Prior to that she was treated in the [facility]. She is no alcohol or drug problem. Past Med Surg Social Fam HX - Past Medical History Medical history: no medical history - Past Psychiatric History Psychiatric history: Reports: depression Family psychiatric history: Unknown Family History of Suicide: Unknown - Past Surgical History Surgical History: non-contributory - Social History Smoking Status: Current every day smoker Smokeless Tobacco Status: No Alcohol use: none Drug use: none Occupational status: previously employed Current living situation: Home - Independent, With Family Activity Level: Independent ambulation Recent Out of Country Travel Within the Last 8 Weeks: No Exposure or Possible Exposure to Illness During Travel: No - Family History Mother Adopted: [place]: shanda hernandes Age: 66 Living Status: Still Living Hx Family Cardiac Disorders: No Hx Family Respiratory Disorders: Yes (COPD) Hx Family Cancer: Yes (breast cancer, lung cancer) Hx Family GI Disorders: Yes (IBS, GERD) Hx Family Genitourinary Disorders: No Hx Family Endocrine Disorder: No Hx Family Musculoskeletal Disorders: No Hx Family Neuromuscular Disorders: No Hx Family Neurologic Disorders: No Hx Family HEENT Disorders: No Hx Family Autoimmune Disorders: No Hx Family Reproductive Disorders: No Hx Family Psychosocial Disorders: Yes (Depression,Social anxiety, panic attacks) Hx Family Medical Disorders: No Medications & Allergies No Known Home Drugs 12/19/17 [History] 3 Allergy/AdvReac Type Severity Reaction Status Date / Time No Known Allergies Allergy Verified 11/10/17 16:00 Review of Systems Psychiatric: Reports: depression, anxiety, abnormal sleep pattern, suicidal ideation Exam - HEENT Head exam IM: Present: atraumatic Eye exam IM: Present: EOMI, normal appearance, PERRL ENT exam IM: Present: normal exam - Neurological Neurological exam: Present: CN II-XII intact - Respiratory Respiratory exam IM: Present: CTAB - GI/Abdominal GI/Abdominal exam IM: Present: normal bowel sounds, soft. Absent: tenderness - Extremities Extremities exam IM: Present: full ROM - Skin Skin exam IM: Present: dry, warm - Additional Information Additional Information: The exam was chaperoned by a female RN. The exam was a limited exam. The patient is overweight with a BMI of 39.1 - Constitutional Vitals: Temp Pulse Resp BP 99.0 F 83 16 144/77 12/20/17 08:03 12/20/17 08:03 12/20/17 08:03 12/20/17 08:03 General appearance: age & developmentally appropriate, well-groomed, well- nourished - Musculoskeletal Gait: normal Station: relaxed Strength & Tone: normal for patient - Psychiatric Patient Orientation: Yes Person, Yes Time, Yes Place Level of alertness: Alert Behavior: calm, cooperative Psychomotor activity: Slowed Eye Contact: Minimal Contact Mood Description: Euthymic/stable, Depressed Affect description: congruent with mood, full range, dysphoric Speech Volume: Normal Speech pattern: normal rate, normal rhythm, normal tone, fluent, spontaneous Language & Vocabulary: consistent with education Thought Process: Linear, Goal Oriented Thought Content: Yes Suicidal ideation, No Homicidal ideation, No Overt delusions Perceptual Disturbances: No Auditory hallucinations, No Visual hallucinations Attention Span Ability: Capable of Focused Attention Memory Description: Grossly Intact Patient Reliability: Reliable Historian Fund of knowledge: Yes abstraction ability, Yes average, Yes aware of current events Intelligence Estimate: Average Judgment: Limited Insight: Minimal Assessment and Plan (1) Suicidal ideation Current visit: No Status: Acute Plan: Suicide Precautions per unit protocol, Secure weapons Risks, benefits, side effects, alternatives discussed w/pt: Yes Patient agreeable to treatment : Yes Plans for Post Hospital Care: Home (2) Obesity Current visit: No Status: Chronic Plan: Monitor appetite Risks, benefits, side effects, alternatives discussed w /pt: Yes Patient agreeable to treatment: Yes Plans for Post Hospital Care: Home Qualifiers: Obesity type: unspecified obesity type Obesity classification: adult class 2 (BMI 35 - 39.9) Serious obesity comorbidity presence: without serious comorbidity Body mass index: BMI 39.0-39.9 Qualified Code(s): E66.9 - Obesity, unspecified; Z68.39 - Body mass index (BMI) 39.0-39.9, adult (3) Major depressive disorder, recurrent severe without psychotic features Current visit: No Status: Acute Plan: Admit inpatient for safety and stabilization, Close observation, Suicide Precautions per unit protocol, Encourage participation in unit milieu, Group Therapy, Monitor sleep, Monitor appetite, Secure weapons, Family/Supportive other meeting Risks, benefits, side effects, alternatives discussed w/pt: Yes Patient agreeable to treatment: Yes Plans for Post Hospital Care: Home Estimated Length of Stay (Days): 5
[2017-12-20] MEDS: traZODone 50 MG TABLET PO SCH (21:02)
[2017-12-21] MEDS: Nicotine 21 MG PATCH.TD24 TD SCH (09:12)
[2017-12-21 13:59] LABS: Thyroid Stimulating Hormone 0.051 mcIU/mL (0.340-5.600)
[2017-12-21 14:02] LABS: % Iron Saturation 15 % (15-50); Iron 51 mcg/dL (50-170); Transferrin 247 mg/dL (203-362)
--- NOTE | 2017-12-21 14:26 | Psychiatry Progress Note ---
Date of Encounter: 12/21/17 Time of Encounter: 14:15 Review of Systems Psychiatric: Reports: depression, anxiety, abnormal sleep pattern, suicidal ideation, change in libido, memory loss Results - Vital Signs Vital Signs: Temp Pulse Resp BP 97.8 F 81 18 132/69 12/21/17 09:00 12/21/17 09:00 12/21/17 09:00 12/21/17 09:00 - Labs Labs: Laboratory Results - last 24 hr 12/21/17 12/21/17 13:07 13:07 Iron 51 % Saturation 15 Transferrin 247 TSH 0.051 L Free T4 0.76 Assessment and Plan (1) Suicidal ideation Current visit: No Status: Acute Risks, benefits, side effects, alternatives discussed w/pt: Yes Patient agreeable to treatment: Yes (2) Obesity Current visit: No Status: Chronic Risks, benefits, side effects, alternatives discussed w/pt: Yes Patient agreeable to treatment: Yes Qualifiers: Obesity type: unspecified obesity type Obesity classification: adult class 2 (BMI 35 - 39.9) Serious obesity comorbidity presence: without serious comorbidity Body mass index: BMI 39.0-39.9 Qualified Code(s): E66.9 - Obesity, unspecified; Z68.39 - Body mass index (BMI) 39.0-39.9, adult (3) Major depressive disorder, recurrent severe without psychotic features Current visit: No Status: Acute Plan: Continue hospitalization, Close observation, Suicide Precautions per unit protocol, Encourage participation in unit milieu, Group Therapy, Monitor sleep, Monitor appetite, Secure weapons, Family/Supportive other meeting Risks, benefits, side effects, alternatives discussed w/pt: Yes Patient agreeable to treatment: Yes (4) Snoring Current visit: Yes Status: Acute Plan: Close observation, Monitor sleep Risks, benefits, side effects, alternatives discussed w/pt: Yes Patient agreeable to treatment: Yes (5) Thyroid function study abnormality Current visit: Yes Status: Acute Plan: Other Risks, benefits, side effects, alternatives discussed w/pt: Yes Patient agreeable to treatment: Yes Consult Discharge Plan - Plan Referrals: [facility] Marcus [Outside] - 01/17/18 3:20 pm (The above appointment is with Natalya Aquino for outpatient psychiatric assessment and medication management services. Please arrive 30 minutes early for first time psychiatry appointments, and 15 minutes early for follow-up psychiatry appointments. Please bring your photo ID (bring proof of address if you do not have an ID), insurance card and medication list. IF YOU DO NOT BRING YOUR INSURANCE CARD YOU CANNOT BE SEEN. The above appointment(s) reflects first availability. You may contact the office regularly to check for cancellations that may allow you to be seen sooner. Additionally, the new bilingual case manager assigned to you will contact you directly to schedule your intake appointment for case management and mental health counseling services. ) Tess Madden [Resident] - 12/29/17 2:00 pm (The above appointment is with Dr. Madden for primary health care and medication management services. Please arrive 10 minutes early to complete the check-in process. You will receive a new patient packet in the mail. Please complete that packet and bring it with you to this appointment. If you are unable to complete your new patient packet, please arrive 30 minutes early to your first appointment to complete this packet in the office. Please also bring your insurance card (or HCAP award letter), photo ID, and all medications in their original bottles to this appointment. If you are unable to keep this appointment, 24 hour business notice of cancellation is expected. If you miss your new patient appointment, you cannot be re-scheduled in this practice. The above appointment(s) reflects first availability. You may contact the office regularly to check for cancellations that may allow you to be seen sooner. [facility] [employer] [facility] will transport you to this appointment and take you back home. Please be ready for picker tender as early as 1:15pm and be watching for the [employer] vehicle. When you are done with your appointment, the doctor's office staff will contact [facility] to take you back home.) Velia Chavez MD [Partnered Physician] - 12/26/17 1:00 pm (The above appointment is with Dr. Chavez for dermatology follow-up. Please bring your photo ID, insurance card and medication list to this appointment. [facility] [employer] [facility] will transport you to this appointment and take you back home. Please be ready for picker tender as early as 12:15pm and be watching for the [employer] vehicle. When you are done with your appointment, dermatology office staff will contact [employer] [employer] to take you back home.) Psychiatry Exam - Constitutional Vitals: Temp Pulse Resp BP 97.8 F 81 18 132/69 12/21/17 09:00 12/21/17 09:00 12/21/17 09:00 12/21/17 09:00 General appearance: age & developmentally appropriate, well-groomed, well- nourished - Musculoskeletal Gait: normal Station: relaxed Strength & Tone: normal for patient - Psychiatric Patient Orientation: Yes Person, Yes Time, Yes Place Level of alertness: Alert Behavior: calm, cooperative Psychomotor activity: Normal Eye Contact: Maintains Eye Contact Mood Description: Euthymic/stable Affect description: congruent with mood, full range Speech Volume: Normal Speech pattern: normal rate, normal rhythm, normal tone, fluent, spontaneous Language & Vocabulary: consistent with education Thought Process: Linear, Goal Oriented Thought Content: Yes Suicidal ideation, No Homicidal ideation, No Overt delusions Perceptual Disturbances: No Auditory hallucinations, No Visual hallucinations Attention Span Ability: Capable of Focused Attention Memory Description: Grossly Intact Patient Reliability: Reliable Historian Fund of knowledge: Yes abstraction ability, Yes aware of current events Intelligence Estimate: Average Judgment: Limited Insight: Partial
[2017-12-21] MEDS: traZODone 50 MG TABLET PO SCH (21:33)
[2017-12-22] MEDS: Nicotine 21 MG PATCH.TD24 TD SCH (09:03)
--- NOTE | 2017-12-22 16:13 | Psychiatry Progress Note ---
Date of Encounter: 12/22/17 Time of Encounter: 16:00 Subjective Interval history: ID: Vinicio is has been on 1A> CC: vinicio has been tired. Patient has loud snoring. She has tolerated meds. Her mood is improved. She notes that she has no thought of overdose. patient would like to working on follow-up of sleep disorder and and of thyroid disorder she notes no side effects. Review of Systems Psychiatric: Reports: depression, anxiety, abnormal sleep pattern, suicidal ideation, change in libido, memory loss Results - Vital Signs Vital Signs: Temp Pulse Resp BP 98.7 F 107 18 122/73 12/22/17 09:00 12/22/17 09:00 12/22/17 09:00 12/22/17 09:00 Assessment and Plan (1) Suicidal ideation Current visit: No Status: Acute Risks, benefits, side effects, alternatives discussed w/pt: Yes Patient agreeable to treatment: Yes (2) Obesity Current visit: No Status: Chronic Risks, benefits, side effects, alternatives discussed w/pt: Yes Patient agreeable to treatment: Yes Qualifiers: Obesity type: unspecified obesity type Obesity classification: adult class 2 (BMI 35 - 39.9) Serious obesity comorbidity presence: without serious comorbidity Body mass index: BMI 39.0-39.9 Qualified Code(s): E66.9 - Obesity, unspecified; Z68.39 - Body mass index (BMI) 39.0-39.9, adult (3) Major depressive disorder, recurrent severe without psychotic features Current visit: No Status: Acute Risks, benefits, side effects, alternatives discussed w/pt: Yes Patient agreeable to treatment: Yes (4) Snoring Current visit: Yes Status: Acute Risks, benefits, side effects, alternatives discussed w/pt: Yes Patient agreeable to treatment: Yes (5) Thyroid function study abnormality Current visit: Yes Status: Acute Risks, benefits, side effects, alternatives discussed w/pt: Yes Patient agreeable to treatment: Yes Consult Discharge Plan - Plan Referrals: [facility] BR[facility] [Outside] - 01/17/18 3:20 pm (The above appointment is with Natalya Aquino for outpatient psychiatric assessment and medication management services. Please arrive 30 minutes early for first time psychiatry appointments, and 15 minutes early for follow-up psychiatry appointments. Please bring your photo ID (bring proof of address if you do not have an ID), insurance card and medication list. IF YOU DO NOT BRING YOUR INSURANCE CARD YOU CANNOT BE SEEN. The above appointment(s) reflects first availability. You may contact the office regularly to check for cancellations that may allow you to be seen sooner. Additionally, the new caser in assigned to you will contact you directly to schedule your intake appointment for case management and mental health counseling services. ) Tess Madden [Resident] - 12/29/17 2:00 pm (The above appointment is with Dr. Madden for primary health care and medication management services. Please arrive 10 minutes early to complete the check-in process. You will receive a new patient packet in the mail. Please complete that packet and bring it with you to this appointment. If you are unable to complete your new patient packet, please arrive 30 minutes early to your first appointment to complete this packet in the office. Please also bring your insurance card (or HCAP award letter), photo ID, and all medications in their original bottles to this appointment. If you are unable to keep this appointment, 24 hour business notice of cancellation is expected. If you miss your new patient appointment, you cannot be re-scheduled in this practice. The above appointment(s) reflects first availability. You may contact the office regularly to check for cancellations that may allow you to be seen sooner. [facility] [employer] [facility] will transport you to this appointment and take you back home. Please be ready for pickling machine operator as early as 1:15pm and be watching for the [employer] vehicle. When you are done with your appointment, the doctor's office staff will contact [employer] to take you back home.) Velia Chavez MD [Partnered Physician] - 12/26/17 1:00 pm (The above appointment is with Dr. Chavez for dermatology follow-up. Please bring your photo ID, insurance card and medication list to this appointment. [facility] [employer] [facility] will transport you to this appointment and take you back home. Please be ready for pickling machine operator as early as 12:15pm and be watching for the [employer] vehicle. When you are done with your appointment, dermatology office staff will contact [facility] [employer] to take you back home.) Psychiatry Exam - Constitutional Vitals: Temp Pulse Resp BP 98.7 F 107 18 122/73 12/22/17 09:00 12/22/17 09:00 12/22/17 09:00 12/22/17 09:00 General appearance: age & developmentally appropriate, well-groomed, well- nourished - Musculoskeletal Gait: normal Station: relaxed Strength & Tone: normal for patient - Psychiatric Patient Orientation: Yes Person, Yes Time, Yes Place Level of alertness: Alert Behavior: calm, cooperative Psychomotor activity: Normal Eye Contact: Maintains Eye Contact Mood Description: Anxious Affect description: congruent with mood, full range, dysphoric Speech Volume: Normal Speech pattern: normal rate, normal rhythm, normal tone, fluent, spontaneous Language & Vocabulary: consistent with education Thought Process: Linear, Goal Oriented Thought Content: Yes Suicidal ideation, No Homicidal ideation, No Overt delusions Perceptual Disturbances: No Auditory hallucinations, No Visual hallucinations Attention Span Ability: Capable of Focused Attention Memory Description: Grossly Intact Patient Reliability: Reliable Historian Fund of knowledge: Yes abstraction ability, Yes aware of current events Intelligence Estimate: Average Insight: Partial
[2017-12-22] MEDS: traZODone 50 MG TABLET PO SCH (21:58)
[2017-12-23 08:19] VITALS: BP 123/68
[2017-12-23] MEDS: Nicotine 21 MG PATCH.TD24 TD SCH (08:54)
--- NOTE | 2017-12-23 09:34 | Discharge Summary ---
Date of Encounter: 12/23/17 Time of Encounter: 09:30 Diagnosis - Discharge Diagnosis (1) Suicidal ideation Priority: Secondary Status: Acute (2) Obesity Priority: Secondary Status: Chronic Qualifiers: Obesity type: unspecified obesity type Obesity classification: adult class 2 (BMI 35 - 39.9) Serious obesity comorbidity presence: without serious comorbidity Body mass index: BMI 39.0-39.9 Qualified Code(s): E66.9 - Obesity, unspecified; Z68.39 - Body mass index (BMI) 39.0-39.9, adult (3) Major depressive disorder, recurrent severe without psychotic features Priority: Primary Status: Acute (4) Snoring Priority: Secondary Status: Chronic (5) Thyroid function study abnormality Priority: Secondary Status: Acute Medications - Discharge Medications Prescriptions: Citalopram [CeleXA] 20 mg PO DAILY 30 Days #30 tablet traZODone [TraZODone] 100 mg PO HS 30 Days #30 tablet Citalopram [CeleXA] 20 mg PO DAILY 30 Days #30 tablet 12/23/17 [Rx] traZODone [TraZODone] 100 mg PO HS 30 Days #30 tablet 12/23/17 [Rx] 3 Allergy/AdvReac Type Severity Reaction Status Date / Time No Known Allergies Allergy Verified 11/10/17 16:00 Results Procedures and tests throughout hospitalization: Completed Lab Orders Category Date Time Status Iron Profile Routine Lab 12/21/17 13:07 Completed Thyroid Stimulating Hormone Routine Lab 12/21/17 13:07 Completed Thyroxine (T4) Free Routine Lab 12/21/17 13:07 Completed Provider Date of admission: 12/19/17 17:17 Primary care physician: PCP NONE Discharging clinician: Carloz Major Psychiatry Exam - Constitutional Vitals: Temp Pulse Resp BP 98.4 F 90 18 123/68 12/23/17 08:18 12/23/17 08:18 12/23/17 08:18 12/23/17 08:18 General appearance: age & developmentally appropriate, well-groomed, well- nourished - Musculoskeletal Gait: normal Station: relaxed Strength & Tone: normal for patient - Psychiatric Patient Orientation: Yes Person, Yes Time, Yes Place Level of alertness: Alert Behavior: calm, cooperative Psychomotor activity: Normal Eye Contact: Maintains Eye Contact Mood Description: Euthymic/stable Affect description: congruent with mood, full range Speech Volume: Normal Speech pattern: normal rate, normal rhythm, normal tone, fluent, spontaneous Language & Vocabulary: consistent with education Thought Process: Linear, Goal Oriented Thought Content: No Suicidal ideation, No Homicidal ideation, No Overt delusions Perceptual Disturbances: No Auditory hallucinations, No Visual hallucinations Attention Span Ability: Capable of Focused Attention Memory Description: Grossly Intact Patient Reliability: Reliable Historian Fund of knowledge: Yes abstraction ability, Yes aware of current events Intelligence Estimate: Average Judgment: Fair Insight: Partial Hospital Course Hospital course: Ms. Strange is a 42 year old female Chief complaint I took an overdose of my boyfriends meds. History of present illness. The patient had a previous history of depression. There was a recent incident where her ex- took her daughter out of state. This caused the patient great distress in addition he made a comment that she interpreted is extremely negative. In response she took an overdose of her boyfriends medicines. The patient resides with her boyfriend and his grandmother. She had not been on treatment for major depression and had been anxious and not attending work. 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 The patient was started on citalopram 10 mg by mouth every 8 a.m. She tolerated this initial dose without significant difficulty. The patient was started on trazodone 50 mg daily at bedtime but this did not help initially. The patient was observed sleeping and had a loud snorer without any witnessed apnea. Nonetheless the patient completed up with sleep scale which showed a scale of 20 suggesting excessive sleepiness. In addition she says that her boyfriend is woken her up to tell her that she had stopped breathing. This is consistent with a history of witnessed apnea. The patient had laboratory studies that were within normal limits with the exception of a low TSH. The the T4 was within normal limits. The patient had an additional examination and there was a palpable thyroid without significant enlargement or mass or nodules. The patient was advised on the need to get primary care address the possibility of thyroid disease. The patient was able to sleep better on trazodone 100 mg daily at bedtime she had a gradual improvement in mood. She recognized that she may have a sleep disorder and agrees to discuss this with her primary care. The patient was given local mental health follow-up with medication management and counseling. She no longer had suicidal ideation. The residence is secure from guns and knives and send the area devices. The patient agrees not to take an overdose for medicine or misuse medications. The patient may return to work as symptoms diminish. Does patient wish to continue nicotine replacement upon disc: No - Time Spent with Patient Total time spent providing and/or coordinating discharge services: Less than 30 minutes Assessment and Plan - Patient/Caregiver Discharge Instructions Activity: resume usual activities as tolerated Diet: regular diet - Follow up Plan Follow up with: [facility] BRICE YANG Marcus [Outside] - 01/17/18 3:20 pm (The above appointment is with Natalya Aquino for outpatient psychiatric assessment and medication management services. Please arrive 30 minutes early for first time psychiatry appointments, and 15 minutes early for follow-up psychiatry appointments. Please bring your photo ID (bring proof of address if you do not have an ID), insurance card and medication list. IF YOU DO NOT BRING YOUR INSURANCE CARD YOU CANNOT BE SEEN. The above appointment(s) reflects first availability. You may contact the office regularly to check for cancellations that may allow you to be seen sooner. Additionally, the new correctional casework specialist assigned to you will contact you directly to schedule your intake appointment for case management and mental health counseling services. ) Tess Madden [Resident] - 12/29/17 2:00 pm (The above appointment is with Dr. Madden for primary health care and medication management services. Please arrive 10 minutes early to complete the check-in process. You will receive a new patient packet in the mail. Please complete that packet and bring it with you to this appointment. If you are unable to complete your new patient packet, please arrive 30 minutes early to your first appointment to complete this packet in the office. Please also bring your insurance card (or HCAP award letter), photo ID, and all medications in their original bottles to this appointment. If you are unable to keep this appointment, 24 hour business notice of cancellation is expected. If you miss your new patient appointment, you cannot be re-scheduled in this practice. The above appointment(s) reflects first availability. You may contact the office regularly to check for cancellations that may allow you to be seen sooner. [facility] will transport you to this appointment and take you back home. Please be ready for cook pickled meat as early as 1:15pm and be watching for the [employer] vehicle. When you are done with your appointment, the doctor's office staff will contact [employer] to take you back home.) Velia Chavez MD [Partnered Physician] - 12/26/17 1:00 pm (The above appointment is with Dr. Chavez for dermatology follow-up. Please bring your photo ID, insurance card and medication list to this appointment. [employer] will transport you to this appointment and take you back home. Please be ready for cook pickled meat as early as 12:15pm and be watching for the [employer] vehicle. When you are done with your appointment, dermatology office staff will contact [employer] to take you back home.) Overall status at discharge: Stable Disposition: Home, Self-Care Quality - Multiple Antipsychotics Patient discharged on 2 or more antipsychotic medications: No Procedures - Procedures Procedures: Medication Management, Crisis Stabilization, Supportive Therapy, Group Therapy, Psychoeducational Therapy
== END 2017-12-23 11:00 | disposition home or self-care (01) | DRG 751 ==
LOC: 1ANU 17:17
PROVIDERS: ADMIT Psychiatry & Neurology Forensic Psychiatry; ATTEND Psychiatry & Neurology Forensic Psychiatry

== ENCOUNTER → 2018-08-13 00:29 | Observation (INO) ==
[2018-08-12 21:57] LABS: Basophils % 0.2 %; Mean Corpuscular Hemoglobin 28.7 pg (28.0-33.3); Monocytes % 11.2 %
[2018-08-12 21:58] LABS: Basophils # 0.1 K/mcL (0.0-0.2); Eosinophils # 0.1 K/mcL (0.0-0.6); Eosinophils % 0.4 %; Hematocrit 38.8 % (35.3-44.9); Hemoglobin 12.9 g/dL (11.5-15.4); Immature Granulocytes % 0.7 % (0-4); Lymphocytes # 2.6 K/mcL (0.6-4.6); Lymphocytes % 9.7 %; Mean Corpuscular HGB Conc 33.2 g/dL (31.6-35.5); Mean Corpuscular Volume 86.2 fL (83.0-100.0); Mean Platelet Volume 8.7 fL (9.4-12.4); Neutrophils # 20.9 K/mcL (1.6-8.9); Platelet Count 265 K/mcL (140-400); Red Cell Distribution Width 13.9 % (11.5-14.5); Segmented Neutrophils % 77.8 %
[2018-08-12 21:59] LABS: Bilirubin,Urine Negative (Negative); Blood,Urine Trace (Negative); Clarity,Urine Turbid (Clear); Color,Urine Yellow (Yellow); Glucose,Urine (UA) Normal (Normal); Ketones,Urine Trace mg/dL (Negative); Leukocyte Esterase,Urine Large (Negative); Nitrite,Urine Negative (Negative); PH,Urine 6.5 pH Units (5.0-8.0); Protein,Urine 30 mg/dL (Neg-Trace); Specific Gravity,Urine 1.013 (1.010-1.025); Urobilinogen,Urine Normal (Normal)
[2018-08-12 22:01] VITALS: BP 136/83
[2018-08-12 22:01] LABS: Bacteria,Urine Many per hpf (None-Few); Hyaline Casts,Urine Few per lpf (None-Few); Squamous Epithelial Cell,Urine Many per lpf (None-Few); WBC,Urine TNTC per hpf (0-3)
--- NOTE | 2018-08-12 22:05 | OB/GYN Progress Note ---
Date of Encounter: 08/12/18 Time of Encounter: 21:42 - Assessment and Plan (1) 31 weeks gestation of Current Visit: Yes Status: Acute Magnesium bolus started, will start magnesium maintenance after bolus complete PCN bolus given Rescue dose of BMZ given IV fluids given Urine pending CBC pending POC per consult with Dr Kauffman Transfer to [facility] accepted by [facility] at roughly 2150 (2) labor in third trimester Current Visit: Yes Status: Acute Qualifiers: labor delivery status: without delivery Qualified Code(s): O60.03 - labor without delivery, third trimester (3) History of attempted suicide Current Visit: Yes Status: Acute (4) Gestational diabetes Current Visit: Yes Status: Acute Qualifiers: Gestational diabetes mellitus control: unspecified Trimester: third trimester Qualified Code(s): O24.419 - Gestational diabetes mellitus in , unspecified control (5) Obesity Current Visit: Yes Status: Chronic Qualifiers: Obesity type: unspecified obesity type Obesity classification: adult class 3 (BMI >= 40) Serious obesity comorbidity presence: without serious comorbidity Body mass index: BMI 40.0-44.9 Qualified Code(s): E66.01 - Morbid (severe) obesity due to excess calories; Z68.41 - Body mass index (BMI) 40.0-44.9, adult (6) History of delivery, currently in third trimester Current Visit: Yes Status: Acute (7) Short cervix affecting Current Visit: Yes Status: Acute (8) Previous section complicating Current Visit: Yes Status: Acute Subjective - Subjective Principal diagnosis: Labor Interval history: Ms Alexandr soto at 31 weeks and 6 days presents to triage with c/o contractions that began around noon today. She states they progressively got w orse throughout the day and she decided to come in this evening. She does have a history significant for a 25 week delivery at age 17 due to urosepsis in which her daughter did not survive greater than 48 hours; this was a delivery. Records indicate it was an LTCS. This has been complicated by GDM, a shortened cervix funneling at 25 weeks which vaginal progesterone was started per RODRICK Garcia (aged 43), obesity, and chronic HTN (procardia XL 30mg daily). She states she had intercourse yesterday. She was given BMZ on 07/26/18 and again on 07/27/18. She is seen by Dr Amaya for her care. Antepartum ROS: movement normal, contractions Objective - Exam FHR comments: Baseline 160 moderate variability with no decels and 10x 10 accels Contractions every 2-4 minutes moderate to palpation Abdomen: Present: normal appearance, soft, gravid Uterus: Present: normal, firm (with contractions; soft between) Cervical dilation: 2-3 Cervix effacement: 100 station: +1 BBOW Vtx
[2018-08-12 22:07] LABS: Amphetamine Screen,Urine Negative ng/mL (Cutoff=1000); Barbiturate Screen,Urine Negative ng/mL (Cutoff=200); Benzodiazepines Screen,Urine Negative ng/mL (Cutoff=200); Cannabinoid Screen,Urine Negative ng/mL (Cutoff = 50); Cocaine Screen,Urine Negative ng/mL (Cutoff= 300); Opiate Screen,Urine Negative ng/mL (Cutoff=300); Phencyclidine Screen,Urine Negative ng/mL (Cutoff=25)
[2018-08-12 22:13] LABS: RBC,Urine 0-3 per hpf (0-3)
[~2018-08-13 00:29] MED LIST: Betamethasone Acet/SodPhos 6 MG/ML MDV IM SCH; Calcium Gluconate 1,000 MG/10 ML VIAL IVPB PRN; Magnesium Sulfate 20 gm/500mL 20 GM/500 ML IV.SOLN IVC SCH; Ondansetron 4 MG/2 ML VIAL IVP PRN; Penicillin G Potassium 2,500,000 UNIT in 0.9 % Sodium Chloride 100 ML IVPB SCH; Penicillin G Potassium 5,000,000 UNIT in 0.9 % Sodium Chloride Mini Bag 100 ML IVPB ONE; Ringers Solution, Lactated 1,000 ML IVC SCH
== END | disposition critical access hospital (66) ==
LOC: 1NENULAB
PROVIDERS: ADMIT Advanced Practice Midwife; ATTEND Advanced Practice Midwife